=== PATIENT | male | born 1965 | race Caucasian/White ===

== ENCOUNTER 2021-09-03 14:35 | Emergency (ER) | payer OTHER ==
[~2021-09-03] VITALS: Ht 182.9 cm; Wt 93.0 kg
[~2021-09-03 14:35] MED LIST: ATORVASTATIN CA40 MG PO; FLUOXETINE HCL20 MG PO; LISINOPRIL20 MG PO; OMEPRAZOLE20 MG PO
[2021-09-03] MEDS ORDERED: ESCITALOPRAM OX10 MG PO (15:01)
[2021-09-03] MEDS ORDERED: ROSUVASTATIN CA20 MG PO (15:02)
[2021-09-03] MEDS ORDERED: TAMSULOSIN HCL0.4 MG PO (15:02)
[2021-09-03] MEDS ORDERED: HYDROCODON-ACE1 EA10 PO (16:58)
== END 2021-09-03 17:24 | disposition home or self-care (01) ==
LOC: ED 14:35
DX: S30.0XXA Contusion of lower back and pelvis, initial encounter (principal); I10 Essential (primary) hypertension; E78.5 Hyperlipidemia, unspecified; Z79.02 Long term (current) use of antithrombotics/antiplatelets; Z79.899 Other long term (current) drug therapy; W01.0XXA Fall on same level from slipping, tripping and stumbling without subsequent striking against object, initial encounter; E78.00 Pure hypercholesterolemia, unspecified
CPT/HCPCS: 72220; 99283-25